=== PATIENT | female | born 1935 | race Two or more races ===

== ENCOUNTER 2022-01-04 21:46 | Inpatient (IN) | payer OTHER ==
[~2022-01-04] VITALS: Ht 172.7 cm; Wt 59.9 kg
[2022-01-04] MEDS ORDERED: ACETAMINOPHEN 650MG SUPP PR STA (23:42)
[2022-01-04] MEDS ORDERED: SODIUM CHLORIDE 0.9% 1,000 ML IV ONE (23:45)
[2022-01-04] MEDS ORDERED: VANCOMYCIN 1G PREMIX 200 ML IV ONE (23:45)
[2022-01-04] MEDS ORDERED: LEVOFLOXACIN 750MG PREMIX 150 ML IV ONE (23:45)
[2022-01-05 01:45] LABS: BASOPHILS % 0.8 % (0.0-2.0); EOSINOPHILS % 0.3 % (0.0-5.0); HEMATOCRIT. 35.7 % (36.0-48.0); HEMOGLOBIN. 11.9 g/dL (12.0-16.0); LYMPHOCYTES % 19.6 % (20.0-50.0); MEAN CORPUSCULAR HEMOGLOBIN 27.2 pg (28.0-32.0); MEAN CORPUSCULAR VOLUME 81.6 fL (81.0-99.0); MEAN PLATELET VOLUME 8.7 fl (7.4-10.4); MONOCYTES % 14.9 % (2.0-8.0); NEUTROPHILS % 64.4 % (40.0-76.0); PLATELET 205 x1000/uL (130-400); RED BLOOD CELL COUNT 4.38 mill/uL (4.2-5.4); RED CELL DISTRIBUTION WIDTH 16.6 % (11.6-14.6)
[2022-01-05 02:31] LABS: CHLORIDE 105 mEq/L (98-107)
[2022-01-05] MEDS ORDERED: VANCOMYCIN 1,000 MG in DEXT 5% WATER 250 ML IV NR (04:00)
[2022-01-05] MEDS ORDERED: LEVOFLOXACIN 750MG PREMIX 150 ML IV NR (04:00)
[2022-01-05 09:37] VITALS: BP 155/91
[2022-01-05] MEDS ORDERED: CLONIDINE 0.1MG TABLET PO PRN (09:45)
[2022-01-05] MEDS ORDERED: DOCUSATE SODIUM 100MG CAPSULE PO PRN (09:45)
[2022-01-05] MEDS ORDERED: ACETAMINOPHEN 325MG TABLET PO PRN ×2 (09:45)
[2022-01-05] MEDS ORDERED: MAGNESIUM/ALUMINUM HYDROXIDE/SIMETHICONE 30ML UDC PO PRN (09:45)
[2022-01-05] MEDS ORDERED: ASPIRIN 325MG EC TABLET PO SCH (09:45)
[2022-01-05] MEDS ORDERED: KETOROLAC 15MG/ML VIAL IV PRN (09:45)
[2022-01-05] MEDS ORDERED: ZOLPIDEM TARTRATE 5MG TABLET PO PRN (09:45)
[2022-01-05] MEDS ORDERED: ONDANSETRON HCL 4MG/2ML INJ IV PRN (09:45)
[2022-01-05] MEDS ORDERED: GUAIFENESIN 200MG/10ML SUGAR FREE UDC PO PRN (09:45)
[2022-01-05] MEDS ORDERED: NITROGLYCERIN 0.4MG TABLET SL SL PRN (09:45)
[2022-01-05] MEDS ORDERED: IPRATROPIUM/ALBUTEROL 0.5-3(2.5)MG/3ML NEB NEB PRN (09:45)
[2022-01-05] MEDS ORDERED: ENOXAPARIN 40MG/0.4ML SYR SUBCUT SCH (10:00)
[2022-01-05] MEDS ORDERED: SODIUM POLYSTYRENE SULFONATE 15 G/60 ML BOT PO NR (10:00)
[2022-01-05] MEDS: AMLODIPINE 10MG TABLET PO SCH (10:45)
[2022-01-05 13:43] LABS: T4 FREE 1.21 ng/dL (0.76-1.46)
[2022-01-05 13:51] LABS: VITAMIN B12 SERUM 550 pg/mL (211-911)
[2022-01-05 16:00] VITALS: BP 136/88
[2022-01-05 18:00] VITALS: BP 133/82
[2022-01-05] MEDS: MEROPENEM 1,000 MG in SODIUM CHLORIDE 0.9% 100 ML IV SCH (18:36)
[2022-01-05 20:00] VITALS: BP 115/76
[2022-01-05] MEDS ORDERED: ENOXAPARIN 40MG/0.4ML SYR SUBCUT NR (20:00)
[2022-01-05] MEDS ORDERED: VANCOMYCIN 750MG PREMIX 150 ML IV SCH (20:00)
[2022-01-05] MEDS: FAMOTIDINE 20MG TABLET PO SCH (21:54)
[2022-01-05] MEDS: ASCORBIC ACID 500 MG TABLET PO SCH (21:54)
[2022-01-05] MEDS: ATORVASTATIN CALCIUM 40MG TABLET PO SCH (21:55)
[2022-01-05 23:35] LABS: CREATINE KINASE 60 IU/L (26-192); CREATINE KINASE MB FRACTION < 1.0 ng/mL (0.5-3.6)
[2022-01-05 23:48] LABS: INR 1.2
[2022-01-06] VITALS: BP 126/82
[2022-01-06] MEDS: MEROPENEM 1,000 MG in SODIUM CHLORIDE 0.9% 100 ML IV SCH ×3 (02:10→18:34)
[2022-01-06 04:00] VITALS: BP 115/75
[2022-01-06 07:04] LABS: HEMATOCRIT. 30.1 % (36.0-48.0); MEAN CORPUSCULAR HEMOGLOBIN 26.9 pg (28.0-32.0); MEAN CORPUSCULAR VOLUME 80.8 fL (81.0-99.0); MEAN PLATELET VOLUME 8.7 fl (7.4-10.4); PLATELET 169 x1000/uL (130-400); RED BLOOD CELL COUNT 3.72 mill/uL (4.2-5.4); RED CELL DISTRIBUTION WIDTH 16.1 % (11.6-14.6)
[2022-01-06 07:36] LABS: CHLORIDE 109 mEq/L (98-107)
[2022-01-06 08:00] VITALS: BP 140/64
[2022-01-06 08:11] LABS: PHOSPHORUS 2.5 mg/dL (2.5-4.9)
[2022-01-06] MEDS ORDERED: VANCOMYCIN 500MG PREMIX 100 ML IV SCH (09:00)
[2022-01-06] MEDS: AMLODIPINE 10MG TABLET PO SCH (09:41)
[2022-01-06] MEDS: ZINC SULFATE 220 MG ( 50 ) CAPSULE PO SCH (09:41)
[2022-01-06] MEDS: ASCORBIC ACID 500 MG TABLET PO SCH ×2 (09:41→21:16)
[2022-01-06] MEDS: FAMOTIDINE 20MG TABLET PO SCH ×2 (09:41→21:16)
[2022-01-06] MEDS: ENOXAPARIN 80MG/0.8ML SYR SUBCUT SCH ×2 (09:42→21:16)
[2022-01-06] MEDS: KCL 20MEQ/100ML PREMIX 100 ML IV SCH ×2 (09:42→12:00)
[2022-01-06] MEDS: ASPIRIN 81MG EC TABLET PO SCH (09:42)
[2022-01-06] MEDS ORDERED: VERAPAMIL HCL 2.5 MG/1 ML 2ML VIAL IV ONE (11:20)
[2022-01-06] MEDS ORDERED: DIPHENHYDRAMINE 50MG/ML VIAL ONE (11:20)
[2022-01-06] MEDS ORDERED: IODIXANOL 320MG/ML 100 ML BOTTLE IV ONE (11:20)
[2022-01-06] MEDS ORDERED: LIDOCAINE HCL 1% 20ML VIAL (Pyxis) INJ ONE (11:20)
[2022-01-06] MEDS ORDERED: HEPARIN 1000 UNITS/ML 10ML ONE (11:39)
[2022-01-06] MEDS ORDERED: FENTANYL CITRATE/PF 50MCG/ML 2ML VIAL ONE (12:21)
[2022-01-06] MEDS ORDERED: MIDAZOLAM HCL 2 MG/2 ML VIAL ONE (12:21)
[2022-01-06] MEDS ORDERED: HYDRALAZINE 20MG/ML VIAL ONE (13:09)
[2022-01-06] MEDS ORDERED: ATROPINE SULFATE 1MG/10ML SYR IV PRN (13:45)
[2022-01-06] MEDS ORDERED: SODIUM CHLORIDE 0.45% 500 ML IV ONE (14:30)
[2022-01-06 16:00] VITALS: BP 140/62
[2022-01-06 18:37] LABS: PLATELET ESTIMATE NORMAL
[2022-01-06] MEDS: VANCOMYCIN 1,000 MG in DEXT 5% WATER 250 ML IV SCH (19:15)
[2022-01-06 20:00] VITALS: BP 143/74
[2022-01-06] MEDS: ATORVASTATIN CALCIUM 40MG TABLET PO SCH (21:16)
[2022-01-06 23:25] LABS: CLARITY URINE CLOUDY (CLEAR); COLOR URINE YELLOW (YELLOW); KETONES URINE TRACE (NEGATIVE); LEUKOCYTE ESTERASE URINE NEGATIVE (NEGATIVE); NITRITE URINE NEGATIVE (NEGATIVE); OCCULT BLOOD URINE NEGATIVE (NEGATIVE); PH URINE 5.5 (4.5-8.0); PROTEIN URINE 1+ (NEGATIVE); SPECIFIC GRAVITY URINE 1.024 (1.005-1.030)
[2022-01-06 23:44] LABS: *AMPHETAMINES SCREEN URINE NEGATIVE (NEGATIVE); *BARBITURATES SCREEN URINE NEGATIVE (NEGATIVE); *BENZODIAZEPINES SCREEN URINE PRESUMTIVE POSITIVE (NEGATIVE); *COCAINE SCREEN URINE NEGATIVE (NEGATIVE); CANNABINOID URINE SCREEN NEGATIVE (NEGATIVE); METHADONE URINE SCREEN NEGATIVE (NEGATIVE); OPIATES URINE SCREEN NEGATIVE (NEGATIVE); PHENCYCLIDINE URINE SCREEN NEGATIVE (NEGATIVE)
[2022-01-07] VITALS (8 sets, daily range): BP systolic 116–148; BP diastolic 51–77
[2022-01-07] MEDS: MEROPENEM 1,000 MG in SODIUM CHLORIDE 0.9% 100 ML IV SCH ×3 (01:36→17:09)
[2022-01-07 07:13] LABS: EOSINOPHILS % 3.2 % (0.0-5.0); HEMATOCRIT. 31.4 % (36.0-48.0); HEMOGLOBIN. 10.4 g/dL (12.0-16.0); LYMPHOCYTES % 20.4 % (20.0-50.0); MEAN CORPUSCULAR HEMOGLOBIN 26.9 pg (28.0-32.0); MEAN CORPUSCULAR VOLUME 81.1 fL (81.0-99.0); MEAN PLATELET VOLUME 9.2 fl (7.4-10.4); MONOCYTES % 14.4 % (2.0-8.0); PLATELET 182 x1000/uL (130-400); RED BLOOD CELL COUNT 3.87 mill/uL (4.2-5.4)
[2022-01-07 08:01] LABS: CHLORIDE 108 mEq/L (98-107)
[2022-01-07] MEDS: ENOXAPARIN 80MG/0.8ML SYR SUBCUT SCH ×2 (09:31→21:59)
[2022-01-07] MEDS: ASCORBIC ACID 500 MG TABLET PO SCH ×2 (09:31→21:59)
[2022-01-07] MEDS: ZINC SULFATE 220 MG ( 50 ) CAPSULE PO SCH (09:32)
[2022-01-07] MEDS: AMLODIPINE 10MG TABLET PO SCH (09:32)
[2022-01-07] MEDS: FAMOTIDINE 20MG TABLET PO SCH ×2 (09:32→21:59)
[2022-01-07] MEDS: ASPIRIN 81MG EC TABLET PO SCH (09:33)
[2022-01-07] MEDS ORDERED: LOSARTAN POTASSIUM 25 MG TABLET PO SCH (10:45)
[2022-01-07] MEDS ORDERED: FUROSEMIDE 20MG TABLET PO SCH (10:45)
[2022-01-07] MEDS: CARVEDILOL 6.25 MG TABLET PO SCH ×2 (12:09→22:00)
[2022-01-07] MEDS: VANCOMYCIN 1,000 MG in DEXT 5% WATER 250 ML IV SCH (17:09)
[2022-01-07] MEDS ORDERED: POTASSIUM CHLORIDE 20MEQ TABLET SR PO NR (19:15)
[2022-01-07] MEDS: ATORVASTATIN CALCIUM 40MG TABLET PO SCH (21:59)
== END 2022-01-07 23:07 | DRG 871 ==
LOC: ER 21:46 → 3WST 01-05 05:38 → ENRESERV 01-05 06:40
PROVIDERS: ADMIT Internal Medicine; ATTEND Internal Medicine
PROC: 4A023N7 Measurement of Cardiac Sampling and Pressure, Left Heart, Percutaneous Approach (ICD-10-PCS; principal; 2022-01-06)
PROC: B2111ZZ Fluoroscopy of Multiple Coronary Arteries using Low Osmolar Contrast (ICD-10-PCS; 2022-01-06)
PROC: B41F1ZZ Fluoroscopy of Right Lower Extremity Arteries using Low Osmolar Contrast (ICD-10-PCS; 2022-01-06)
PROC: 0HBKXZZ Excision of Right Lower Leg Skin, External Approach (ICD-10-PCS; 2022-01-07)
DX: A41.9 Sepsis, unspecified organism (principal); E43 Unspecified severe protein-calorie malnutrition; L89.513 Pressure ulcer of right ankle, stage 3; G92.8 Other toxic encephalopathy; I21.A1 Myocardial infarction type 2; I50.21 Acute systolic (congestive) heart failure; E87.1 Hypo-osmolality and hyponatremia; I42.8 Other cardiomyopathies; D63.8 Anemia in other chronic diseases classified elsewhere; E78.00 Pure hypercholesterolemia, unspecified; E87.5 Hyperkalemia; J45.909 Unspecified asthma, uncomplicated; Z20.822 Contact with and (suspected) exposure to COVID-19; I11.0 Hypertensive heart disease with heart failure; L89.626 Pressure-induced deep tissue damage of left heel; I25.10 Atherosclerotic heart disease of native coronary artery without angina pectoris; F03.90 Unspecified dementia, unspecified severity, without behavioral disturbance, psychotic disturbance, mood disturbance, and anxiety; Z68.20 Body mass index [BMI] 20.0-20.9, adult; Z86.718 Personal history of other venous thrombosis and embolism; Z88.8 Allergy status to other drugs, medicaments and biological substances; Z88.0 Allergy status to penicillin
CPT/HCPCS: 36415; 71045; 80048; 80053; 80061; 80305; 81003; 82040; 82550; 82553; 82607; 82746; 82962; 83036; 83540; 83550; 83605; 83735; 83880; 84100; 84134; 84439; 84443; 84484; 85025; 87426; 93005; 93306; 93458; 93970; 99291; C1760; C1769; C1887; C1893; J0360; J1200; J1644; J1650; J1956; J2185; J2250; J3010; J3370; J3480; J3490; J7030; J7050; J7060; Q9967; A4315

== ENCOUNTER 2022-02-19 16:25 | Inpatient (IN) | payer OTHER ==
[~2022-02-19] VITALS: Ht 167.6 cm; Wt 53.1 kg
[2022-02-19] MEDS ORDERED: MIDAZOLAM 100MG/100ML PMX 100 ML IV STA (16:55)
[2022-02-19] MEDS ORDERED: SODIUM CHLORIDE 0.9% 1000ML BAG (SEPSIS BOLUS) IV ONE (17:00)
[2022-02-19] MEDS ORDERED: VANCOMYCIN 1G PREMIX 200 ML IV SCH (17:30)
[2022-02-19] MEDS ORDERED: LEVOFLOXACIN 750MG PREMIX 150 ML IV ONE (17:30)
[2022-02-19] MEDS ORDERED: LORAZEPAM 2MG/ML CPJ IV ONE (17:30)
[2022-02-19] MEDS ORDERED: LORAZEPAM 2MG/ML CPJ IV NR (17:45)
[2022-02-19] MEDS ORDERED: MIDAZOLAM HCL 100 MG in SODIUM CHLORIDE 0.9% 100 ML IV PRN (17:45)
[2022-02-19 17:57] LABS: HEMATOCRIT. 25.8 % (36.0-48.0); HEMOGLOBIN. 8.4 g/dL (12.0-16.0); MEAN CORPUSCULAR HEMOGLOBIN 25.7 pg (28.0-32.0); MEAN CORPUSCULAR VOLUME 79.3 fL (81.0-99.0); PLATELET 247 x1000/uL (130-400); RED BLOOD CELL COUNT 3.26 mill/uL (4.2-5.4); RED CELL DISTRIBUTION WIDTH 17.9 % (11.6-14.6)
[2022-02-19 18:05] LABS: CHLORIDE 127 mEq/L (98-107)
[2022-02-19 18:08] LABS: INR 1.4; PARTIAL THROMBOPLASTIN TIME 24.3 sec (23.4-31.0); PROTHROMBIN TIME 14.4 sec (9.6-11.0)
[2022-02-19] MEDS ORDERED: PHENYLEPHRINE 50 MG in DEXT 5% WATER 245 ML IV STA (18:37)
[2022-02-19 18:58] LABS: BG BASE EXCESS -3.5 mmol/L (-2.0-2.0); BG CARBOXYHEMOGLOBIN 0.3 % (0.5-1.5); BG DEOXYHEMOGLOBIN 1.2 % (0.0-5.0); BG FRACTION INSPIRED OXYGEN 100; BG HCO3 ACT 20.4 mmol/L (22.0-26.0); BG METHEMOGLOBIN 0.1 % (0.0-1.5); BG OXYGEN SATURATION 98.8 % (92.0-98.5); BG OXYHEMOGLOBIN 98.4 % (94.0-97.0); BG PCO2 32.7 mmHg (35.0-45.0); BG PH 7.414 (7.350-7.450); BG PO2 519.6 mmHg (75.0-100.0); BG SAMPLE SITE LEFT BRACHIAL; BG TOTAL HEMOGLOBIN 9.5 g/dL (12.0-18.0); BG TOTAL RESPIRATORY RATE 12 b/min; BG VENT MODE VENT - AC
[2022-02-19] MEDS ORDERED: KCL 10MEQ/50ML PREMIX 50 ML IV ONE (19:00)
[2022-02-19 19:09] LABS: CLARITY URINE CLOUDY (CLEAR); COLOR URINE YELLOW (YELLOW); KETONES URINE TRACE (NEGATIVE); LEUKOCYTE ESTERASE URINE TRACE (NEGATIVE); NITRITE URINE NEGATIVE (NEGATIVE); OCCULT BLOOD URINE NEGATIVE (NEGATIVE); PROTEIN URINE 2+ (NEGATIVE); SPECIFIC GRAVITY URINE 1.016 (1.005-1.030)
[2022-02-19] MEDS ORDERED: PHENYLEPHRINE 50 MG in DEXT 5% WATER 245 ML IV PRN (19:15)
[2022-02-19 19:38] LABS: PLATELET ESTIMATE NORMAL
[2022-02-19] MEDS ORDERED: ASPIRIN 300MG SUPP PR ONE (19:45)
[2022-02-19] MEDS ORDERED: NOREPINEPHRINE 8MG/250ML PMX 250 ML IV ONE (21:30)
[2022-02-19] MEDS ORDERED: NOREPINEPHRINE 8 MG in DEXTROSE 5% WATER 250 ML IV PRN (22:00)
[2022-02-20] VITALS (58 sets, daily range): BP systolic 95–161; BP diastolic 42–97
[2022-02-20] MEDS ORDERED: LEVOFLOXACIN 500MG PREMIX 100 ML IV SCH (09:30)
[2022-02-20] MEDS ORDERED: PANTOPRAZOLE 40MG DR TABLET PO SCH (09:30)
[2022-02-20] MEDS ORDERED: ONDANSETRON HCL 4MG/2ML INJ IV PRN (09:30)
[2022-02-20] MEDS ORDERED: LEVETIRACETAM 500 MG in SODIUM CHLORIDE 0.9% 100 ML IV SCH (09:30)
[2022-02-20] MEDS ORDERED: ACETAMINOPHEN 325MG TABLET PO PRN (09:30)
[2022-02-20] MEDS ORDERED: NOREPINEPHRINE 8 MG in DEXT 5% WATER 242 ML IV PRN (10:00)
[2022-02-20] MEDS ORDERED: ENOXAPARIN 40MG/0.4ML SYR SUBCUT SCH (10:00)
[2022-02-20] MEDS ORDERED: MIDAZOLAM HCL 100 MG in SODIUM CHLORIDE 0.9% 80 ML IV PRN (10:00)
[2022-02-20] MEDS: PANTOPRAZOLE SODIUM 40 MG/VIAL IV SCH (10:46)
[2022-02-20] MEDS: DEXTROSE 5% WATER 1,000 ML IV SCH ×2 (10:47→22:55)
[2022-02-20] MEDS: LEVETIRACETAM 500MG in SODIUM CHLORIDE 0.9% 100ML IV SCH ×2 (10:48→20:11)
[2022-02-20] MEDS: DEXAMETHASONE 4MG/ML 1ML VIAL IV SCH (12:45)
[2022-02-20] MEDS: MIDODRINE HCL 5MG TABLET PO SCH ×2 (12:46→17:22)
[2022-02-20] MEDS: PHENYLEPHRINE 50 MG in DEXT 5% WATER 245 ML IV PRN ×2 (12:46→20:52)
[2022-02-20 13:46] LABS: BASOPHILS % 0.2 % (0.0-2.0); EOSINOPHILS % 0.4 % (0.0-5.0); HEMATOCRIT. 23.7 % (36.0-48.0); HEMOGLOBIN. 7.6 g/dL (12.0-16.0); LYMPHOCYTES % 7.4 % (20.0-50.0); MEAN CORPUSCULAR HEMOGLOBIN 25.6 pg (28.0-32.0); MEAN PLATELET VOLUME 8.8 fl (7.4-10.4); MONOCYTES % 2.9 % (2.0-8.0); NEUTROPHILS % 89.1 % (40.0-76.0); PLATELET 206 x1000/uL (130-400); RED BLOOD CELL COUNT 2.98 mill/uL (4.2-5.4); RED CELL DISTRIBUTION WIDTH 17.9 % (11.6-14.6)
[2022-02-20 13:48] LABS: MEAN CORPUSCULAR VOLUME 79.6 fL (81.0-99.0)
[2022-02-20 14:23] LABS: PHOSPHORUS 2.4 mg/dL (2.5-4.9)
[2022-02-20 14:44] LABS: BG BASE EXCESS -5.9 mmol/L (-2.0-2.0); BG CARBOXYHEMOGLOBIN 0.7 % (0.5-1.5); BG DEOXYHEMOGLOBIN 1.1 % (0.0-5.0); BG FRACTION INSPIRED OXYGEN 70; BG HCO3 ACT 16.2 mmol/L (22.0-26.0); BG METHEMOGLOBIN 0.3 % (0.0-1.5); BG OXYGEN SATURATION 98.9 % (92.0-98.5); BG OXYHEMOGLOBIN 97.9 % (94.0-97.0); BG PCO2 21.2 mmHg (35.0-45.0); BG PH 7.502 (7.350-7.450); BG PO2 216.3 mmHg (75.0-100.0); BG SAMPLE SITE RIGHT BRACHIAL; BG TOTAL HEMOGLOBIN 7.8 g/dL (12.0-18.0); BG VENT MODE VENT - AC
[2022-02-20 14:49] LABS: FOLIC ACID (FOLATE) SERUM 3.6 ng/mL (>5.38)
[2022-02-20] MEDS ORDERED: VANCOMYCIN 750MG PREMIX 150 ML IV SCH (15:00)
[2022-02-20] MEDS ORDERED: POTASSIUM CHLORIDE INJ 40 MEQ in DEXT 5% WATER 250 ML IV ONE (15:15)
[2022-02-20] MEDS: KCL 20MEQ/100ML X 2 FOR TOTAL KCL 40MEQ/200ML IV SCH ×2 (15:59→17:22)
[2022-02-20] MEDS: LEVOFLOXACIN 250MG PREMIX 50 ML IV SCH (17:22)
[2022-02-20] MEDS ORDERED: POTASSIUM PHOS,M-BASIC-D-BASIC 10 MMOL in DEXT 5% WATER 246.6667 ML IV NR (20:00)
[2022-02-20] MEDS ORDERED: PNEUMOCOCCAL 23-VAL P-SAC VAC 0.5 ML IM ONE (22:30)
[2022-02-20] MEDS: ENOXAPARIN 60MG/0.6ML SYR SUBCUT SCH (22:40)
[2022-02-21] VITALS (97 sets, daily range): BP systolic 92–155; BP diastolic 50–88
[2022-02-21 05:03] LABS: HEMATOCRIT. 25.2 % (36.0-48.0); HEMOGLOBIN. 8.1 g/dL (12.0-16.0); MEAN CORPUSCULAR HEMOGLOBIN 25.7 pg (28.0-32.0); MEAN CORPUSCULAR VOLUME 80.5 fL (81.0-99.0); MEAN PLATELET VOLUME 8.9 fl (7.4-10.4); PLATELET 185 x1000/uL (130-400); RED BLOOD CELL COUNT 3.13 mill/uL (4.2-5.4); RED CELL DISTRIBUTION WIDTH 18.8 % (11.6-14.6)
[2022-02-21] MEDS: MIDODRINE HCL 5MG TABLET PO SCH ×3 (08:09→16:44)
[2022-02-21] MEDS: PANTOPRAZOLE SODIUM 40 MG/VIAL IV SCH (08:09)
[2022-02-21] MEDS: DEXAMETHASONE 4MG/ML 1ML VIAL IV SCH (08:10)
[2022-02-21] MEDS: PHENYLEPHRINE 50 MG in DEXT 5% WATER 245 ML IV PRN (08:10)
[2022-02-21] MEDS: LEVETIRACETAM 500MG in SODIUM CHLORIDE 0.9% 100ML IV SCH (08:11)
[2022-02-21] MEDS ORDERED: ENOXAPARIN 30MG/0.3ML SYR SUBCUT SCH (09:00)
[2022-02-21 09:09] LABS: PLATELET ESTIMATE NORMAL
[2022-02-21 10:38] LABS: BG BASE EXCESS -5.7 mmol/L (-2.0-2.0); BG CARBOXYHEMOGLOBIN 0.6 % (0.5-1.5); BG DEOXYHEMOGLOBIN 1.2 % (0.0-5.0); BG FRACTION INSPIRED OXYGEN 50; BG HCO3 ACT 16.6 mmol/L (22.0-26.0); BG METHEMOGLOBIN 0.3 % (0.0-1.5); BG OXYGEN SATURATION 98.8 % (92.0-98.5); BG OXYHEMOGLOBIN 97.9 % (94.0-97.0); BG PCO2 21.7 mmHg (35.0-45.0); BG PH 7.501 (7.350-7.450); BG PO2 200.7 mmHg (75.0-100.0); BG SAMPLE SITE RIGHT BRACHIAL; BG TOTAL HEMOGLOBIN 7.3 g/dL (12.0-18.0); BG TOTAL RESPIRATORY RATE 24 b/min; BG VENT MODE VENT - AC
[2022-02-21] MEDS: DEXTROSE 5% WATER 1,000 ML IV SCH (12:32)
[2022-02-21 12:35] LABS: PHOSPHORUS 2.9 mg/dL (2.5-4.9)
[2022-02-21] MEDS ORDERED: VANCOMYCIN 500MG PREMIX 100 ML IV NR (13:00)
[2022-02-21] MEDS: DEXT 5%/0.45% NACL 1000ML 1,000 ML IV SCH (15:43)
[2022-02-21 16:27] LABS: BG BASE EXCESS -7.1 mmol/L (-2.0-2.0); BG CARBOXYHEMOGLOBIN 0.4 % (0.5-1.5); BG DEOXYHEMOGLOBIN 1.8 % (0.0-5.0); BG FRACTION INSPIRED OXYGEN 30; BG HCO3 ACT 15.3 mmol/L (22.0-26.0); BG METHEMOGLOBIN 0.1 % (0.0-1.5); BG OXYGEN SATURATION 98.2 % (92.0-98.5); BG OXYHEMOGLOBIN 97.7 % (94.0-97.0); BG PCO2 21.2 mmHg (35.0-45.0); BG PH 7.477 (7.350-7.450); BG SAMPLE SITE RIGHT BRACHIAL; BG TOTAL HEMOGLOBIN 7.9 g/dL (12.0-18.0); BG TOTAL RESPIRATORY RATE 20 b/min; BG VENT MODE VENT - SIMV
[2022-02-21] MEDS: LEVOFLOXACIN 250MG PREMIX 50 ML IV SCH (16:44)
[2022-02-21] MEDS: ENOXAPARIN 60MG/0.6ML SYR SUBCUT SCH (20:20)
[2022-02-21] MEDS: LEVETIRACETAM 500MG PREMIX 100 ML IV SCH (20:20)
[2022-02-22] VITALS (53 sets, daily range): BP systolic 92–166; BP diastolic 53–123
[2022-02-22 05:04] LABS: MEAN CORPUSCULAR HEMOGLOBIN 25.6 pg (28.0-32.0); MEAN CORPUSCULAR VOLUME 77.6 fL (81.0-99.0); MEAN PLATELET VOLUME 9.1 fl (7.4-10.4); PLATELET 142 x1000/uL (130-400); RED BLOOD CELL COUNT 2.67 mill/uL (4.2-5.4); RED CELL DISTRIBUTION WIDTH 18.5 % (11.6-14.6)
[2022-02-22 05:56] LABS: HEMATOCRIT. 20.7 % (36.0-48.0); HEMOGLOBIN. 6.8 g/dL (12.0-16.0)
[2022-02-22] MEDS ORDERED: SODIUM POLYSTYRENE SULFONATE 15 G/60 ML BOT PO SCH (07:15)
[2022-02-22] MEDS: CITRIC ACID/SODIUM CITRATE SOLN 30ML UDC PO SCH ×3 (09:32→18:32)
[2022-02-22] MEDS: MIDODRINE HCL 5MG TABLET PO SCH ×2 (09:34→14:28)
[2022-02-22] MEDS: DEXAMETHASONE 4MG/ML 1ML VIAL IV SCH (09:35)
[2022-02-22] MEDS: LEVETIRACETAM 500MG PREMIX 100 ML IV SCH (09:36)
[2022-02-22] MEDS: PANTOPRAZOLE SODIUM 40 MG/VIAL IV SCH ×2 (09:36→22:53)
[2022-02-22] MEDS: DEXT 5%/0.45% NACL 1000ML 1,000 ML IV SCH (09:37)
[2022-02-22 11:10] LABS: BG BASE EXCESS -6.3 mmol/L (-2.0-2.0); BG CARBOXYHEMOGLOBIN 1.3 % (0.5-1.5); BG DEOXYHEMOGLOBIN 1.2 % (0.0-5.0); BG FRACTION INSPIRED OXYGEN 30; BG METHEMOGLOBIN 0.1 % (0.0-1.5); BG OXYGEN SATURATION 98.8 % (92.0-98.5); BG OXYHEMOGLOBIN 97.4 % (94.0-97.0); BG PCO2 24.8 mmHg (35.0-45.0); BG PH 7.454 (7.350-7.450); BG PO2 147.4 mmHg (75.0-100.0); BG SAMPLE SITE RIGHT BRACHIAL; BG TOTAL HEMOGLOBIN 6.4 g/dL (12.0-18.0); BG VENT MODE VENT - SIMV
[2022-02-22 11:24] LABS: PLATELET ESTIMATE NORMAL
[2022-02-22] MEDS: LORAZEPAM 2MG/ML CPJ IV PRN ×2 (12:10→22:53)
[2022-02-22] MEDS: FOLIC ACID 1MG TABLET PO SCH (14:28)
[2022-02-22 15:22] LABS: HEMATOCRIT. 21.9 % (36.0-48.0); MEAN CORPUSCULAR HEMOGLOBIN 26.2 pg (28.0-32.0); MEAN CORPUSCULAR VOLUME 84.3 fL (81.0-99.0); MEAN PLATELET VOLUME 9.8 fl (7.4-10.4); PLATELET 138 x1000/uL (130-400); RED CELL DISTRIBUTION WIDTH 19.2 % (11.6-14.6)
[2022-02-22 15:50] LABS: HEMOGLOBIN. 6.8 g/dL (12.0-16.0)
[2022-02-22 17:18] LABS: PLATELET ESTIMATE NORMAL
[2022-02-22] MEDS: FERROUS SULFATE 300MG/5ML UDC NG SCH (18:32)
[2022-02-22] MEDS: LEVOFLOXACIN 250MG PREMIX 50 ML IV SCH (18:33)
[2022-02-22 19:14] LABS: HEMOGLOBIN 6.7 g/dL (12.0-16.0)
[2022-02-22 19:15] LABS: HEMATOCRIT 20.3 % (36.0-48.0)
[2022-02-22] MEDS: LEVETIRACETAM 750 MG in SODIUM CHLORIDE 0.9% 100 ML IV SCH (21:18)
[2022-02-23] VITALS (47 sets, daily range): BP systolic 88–134; BP diastolic 43–65
[2022-02-23 05:49] LABS: MEAN CORPUSCULAR HEMOGLOBIN 25.8 pg (28.0-32.0); MEAN CORPUSCULAR VOLUME 76.3 fL (81.0-99.0); MEAN PLATELET VOLUME 9.4 fl (7.4-10.4); PLATELET 116 x1000/uL (130-400); RED BLOOD CELL COUNT 2.21 mill/uL (4.2-5.4); RED CELL DISTRIBUTION WIDTH 18.3 % (11.6-14.6)
[2022-02-23] MEDS: FERROUS SULFATE 300MG/5ML UDC NG SCH ×3 (06:14→19:05)
[2022-02-23] MEDS: DEXT 5%/0.45% NACL 1000ML 1,000 ML IV SCH (06:15)
[2022-02-23 07:38] LABS: HEMATOCRIT. 16.9 % (36.0-48.0); HEMOGLOBIN. 5.7 g/dL (12.0-16.0)
[2022-02-23 08:16] LABS: BG BASE EXCESS -5.8 mmol/L (-2.0-2.0); BG CARBOXYHEMOGLOBIN 0.1 % (0.5-1.5); BG HCO3 ACT 16.9 mmol/L (22.0-26.0); BG METHEMOGLOBIN 0.5 % (0.0-1.5); BG OXYHEMOGLOBIN 97.4 % (94.0-97.0); BG PCO2 22.2 mmHg (35.0-45.0); BG PH 7.499 (7.350-7.450); BG PO2 141.4 mmHg (75.0-100.0); BG SAMPLE SITE RIGHT RADIAL; BG TOTAL HEMOGLOBIN 5.7 g/dL (12.0-18.0); BG VENT MODE VENT - SIMV
[2022-02-23] MEDS ORDERED: DEXAMETHASONE 10 MG/ML VIAL IV SCH (09:00)
[2022-02-23] MEDS: CITRIC ACID/SODIUM CITRATE SOLN 30ML UDC PO SCH ×3 (10:03→19:05)
[2022-02-23] MEDS: PANTOPRAZOLE SODIUM 40 MG/VIAL IV SCH ×2 (10:03→21:35)
[2022-02-23] MEDS: FOLIC ACID 1MG TABLET PO SCH (10:03)
[2022-02-23] MEDS: LEVETIRACETAM 750 MG in SODIUM CHLORIDE 0.9% 100 ML IV SCH ×2 (10:04→21:35)
[2022-02-23 15:29] LABS: NUCLEATED RED BLOOD CELLS 2 /100 WBC; PLATELET ESTIMATE DECREASED
[2022-02-23] MEDS: LEVOFLOXACIN 250MG PREMIX 50 ML IV SCH (19:05)
[2022-02-24] VITALS (42 sets, daily range): BP systolic 91–118; BP diastolic 44–58
[2022-02-24] MEDS: DEXT 5%/0.45% NACL 1000ML 1,000 ML IV SCH ×2 (02:41→22:37)
[2022-02-24 05:44] LABS: MEAN CORPUSCULAR HEMOGLOBIN 25.3 pg (28.0-32.0); MEAN PLATELET VOLUME 9.2 fl (7.4-10.4); PLATELET 102 x1000/uL (130-400); RED BLOOD CELL COUNT 2.14 mill/uL (4.2-5.4); RED CELL DISTRIBUTION WIDTH 18.4 % (11.6-14.6)
[2022-02-24 06:17] LABS: HEMATOCRIT. 16.3 % (36.0-48.0); HEMOGLOBIN. 5.4 g/dL (12.0-16.0)
[2022-02-24] MEDS ORDERED: KCL 20MEQ/100ML PREMIX 100 ML IV NR (07:30)
[2022-02-24] MEDS: CITRIC ACID/SODIUM CITRATE SOLN 30ML UDC PO SCH ×3 (08:14→17:00)
[2022-02-24] MEDS: FERROUS SULFATE 300MG/5ML UDC NG SCH ×3 (08:14→17:00)
[2022-02-24] MEDS: FOLIC ACID 1MG TABLET PO SCH (08:15)
[2022-02-24] MEDS: DEXAMETHASONE 4MG/ML 1ML VIAL IV SCH (08:15)
[2022-02-24] MEDS: LEVETIRACETAM 750 MG in SODIUM CHLORIDE 0.9% 100 ML IV SCH ×2 (08:15→21:44)
[2022-02-24] MEDS ORDERED: POTASSIUM CHLORIDE INJ 40 MEQ in DEXT 5% WATER 250 ML IV NR (10:00)
[2022-02-24] MEDS: PANTOPRAZOLE SODIUM 40 MG/VIAL IV SCH ×2 (10:00→22:37)
[2022-02-24 12:45] LABS: PLATELET ESTIMATE SLIGHTLY DECREASED
[2022-02-24 15:10] LABS: PHOSPHORUS 3.8 mg/dL (2.5-4.9)
[2022-02-24] MEDS ORDERED: MAGNESIUM 2 G PREMIX 50 ML IV NR (18:00)
[2022-02-24] MEDS ORDERED: POTASSIUM CHLORIDE 20MEQ/PACKET NG NR (18:00)
[2022-02-25] VITALS (44 sets, daily range): BP systolic 94–126; BP diastolic 45–63
[2022-02-25 05:45] LABS: BASOPHILS % 0.1 % (0.0-2.0); LYMPHOCYTES % 7.9 % (20.0-50.0); MEAN CORPUSCULAR HEMOGLOBIN 27.5 pg (28.0-32.0); MEAN CORPUSCULAR VOLUME 80.1 fL (81.0-99.0); MEAN PLATELET VOLUME 9.5 fl (7.4-10.4); MONOCYTES % 6.1 % (2.0-8.0); NEUTROPHILS % 85.9 % (40.0-76.0); PLATELET 71 x1000/uL (130-400); RED CELL DISTRIBUTION WIDTH 19.9 % (11.6-14.6)
[2022-02-25 06:11] LABS: HEMOGLOBIN. 6.9 g/dL (12.0-16.0)
[2022-02-25] MEDS: FERROUS SULFATE 300MG/5ML UDC NG SCH ×3 (07:35→17:00)
[2022-02-25] MEDS: PANTOPRAZOLE SODIUM 40 MG/VIAL IV SCH ×2 (09:47→21:50)
[2022-02-25] MEDS: FUROSEMIDE 40MG/4ML VIAL IVP SCH (09:48)
[2022-02-25] MEDS: CITRIC ACID/SODIUM CITRATE SOLN 30ML UDC PO SCH ×3 (09:48→17:00)
[2022-02-25] MEDS: POTASSIUM CHLORIDE 20MEQ/PACKET PO SCH ×2 (09:49→17:00)
[2022-02-25] MEDS: FOLIC ACID 1MG TABLET PO SCH (09:49)
[2022-02-25] MEDS: LEVETIRACETAM 750 MG in SODIUM CHLORIDE 0.9% 100 ML IV SCH ×2 (09:49→21:48)
[2022-02-25] MEDS: DEXAMETHASONE 4MG/ML 1ML VIAL IV SCH (09:50)
[2022-02-25] MEDS ORDERED: LEVOFLOXACIN 250MG PREMIX 50 ML IV SCH (11:00)
[2022-02-25] MEDS: ATORVASTATIN CALCIUM 40MG TABLET NG SCH (21:48)
[2022-02-26] VITALS (41 sets, daily range): BP systolic 99–130; BP diastolic 43–84
[2022-02-26 05:36] LABS: BASOPHILS % 0.1 % (0.0-2.0); EOSINOPHILS % 0.2 % (0.0-5.0); HEMOGLOBIN. 8.9 g/dL (12.0-16.0); LYMPHOCYTES % 8.2 % (20.0-50.0); MEAN CORPUSCULAR HEMOGLOBIN 28.6 pg (28.0-32.0); MEAN CORPUSCULAR VOLUME 83.5 fL (81.0-99.0); MEAN PLATELET VOLUME 9.3 fl (7.4-10.4); MONOCYTES % 5.9 % (2.0-8.0); NEUTROPHILS % 85.6 % (40.0-76.0); PLATELET 60 x1000/uL (130-400); RED BLOOD CELL COUNT 3.11 mill/uL (4.2-5.4); RED CELL DISTRIBUTION WIDTH 20.4 % (11.6-14.6)
[2022-02-26] MEDS: FERROUS SULFATE 300MG/5ML UDC NG SCH ×3 (06:02→16:23)
[2022-02-26 06:14] LABS: PHOSPHORUS 2.8 mg/dL (2.5-4.9)
[2022-02-26] MEDS ORDERED: POTASSIUM CHLORIDE 20MEQ/PACKET PO ONE (07:45)
[2022-02-26] MEDS: CITRIC ACID/SODIUM CITRATE SOLN 30ML UDC PO SCH ×3 (09:27→16:23)
[2022-02-26] MEDS: FUROSEMIDE 40MG/4ML VIAL IVP SCH (09:27)
[2022-02-26] MEDS: FOLIC ACID 1MG TABLET PO SCH (09:27)
[2022-02-26] MEDS: DEXAMETHASONE 4MG/ML 1ML VIAL IV SCH (09:28)
[2022-02-26] MEDS: POTASSIUM CHLORIDE 20MEQ/PACKET PO SCH ×2 (09:28→16:23)
[2022-02-26] MEDS: LEVETIRACETAM 750 MG in SODIUM CHLORIDE 0.9% 100 ML IV SCH (09:28)
[2022-02-26 10:10] LABS: BG BASE EXCESS -3.9 mmol/L (-2.0-2.0); BG CARBOXYHEMOGLOBIN 0.3 % (0.5-1.5); BG DEOXYHEMOGLOBIN 2.2 % (0.0-5.0); BG FRACTION INSPIRED OXYGEN 30; BG METHEMOGLOBIN 1.1 % (0.0-1.5); BG OXYGEN SATURATION 97.8 % (92.0-98.5); BG OXYHEMOGLOBIN 96.4 % (94.0-97.0); BG PCO2 27.2 mmHg (35.0-45.0); BG PH 7.461 (7.350-7.450); BG PO2 139.6 mmHg (75.0-100.0); BG SAMPLE SITE RIGHT RADIAL; BG TOTAL HEMOGLOBIN 9.5 g/dL (12.0-18.0); BG VENT MODE VENT - SIMV
[2022-02-26 14:16] LABS: BG BASE EXCESS -1.6 mmol/L (-2.0-2.0); BG CARBOXYHEMOGLOBIN 0.1 % (0.5-1.5); BG FRACTION INSPIRED OXYGEN 30; BG HCO3 ACT 22.1 mmol/L (22.0-26.0); BG METHEMOGLOBIN 0.2 % (0.0-1.5); BG OXYHEMOGLOBIN 97.7 % (94.0-97.0); BG PCO2 33.5 mmHg (35.0-45.0); BG PH 7.438 (7.350-7.450); BG PO2 145.2 mmHg (75.0-100.0); BG SAMPLE SITE RIGHT BRACHIAL; BG TOTAL HEMOGLOBIN 8.9 g/dL (12.0-18.0); BG VENT MODE VENT - CPAP
[2022-02-26 17:15] LABS: D-DIMER 7.89 mg/L FEU (<0.50); INR 1.1; PARTIAL THROMBOPLASTIN TIME 29.8 sec (23.4-31.0); PROTHROMBIN TIME 11.9 sec (9.6-11.0)
[2022-02-26] MEDS: ATORVASTATIN CALCIUM 40MG TABLET NG SCH (20:12)
[2022-02-26] MEDS ORDERED: FAMOTIDINE 20MG/2ML VIAL IV SCH (21:00)
[2022-02-26] MEDS ORDERED: PANTOPRAZOLE SODIUM 40 MG/VIAL IV SCH (21:00)
== END 2022-02-26 21:45 | disposition short-term general hospital (02) | DRG 870 ==
LOC: ER 16:39 → EDBEDREQ 18:42 → MICUSO 23:16 → MICUNO 02-20 09:56 → MICUSO 02-22 05:54 → MICUNO 02-22 20:32 → 7EST 02-24 19:50 → MICUNO 02-24 21:07
PROVIDERS: ADMIT Internal Medicine; ATTEND Internal Medicine
PROC: 5A1955Z Respiratory Ventilation, Greater than 96 Consecutive Hours (ICD-10-PCS; principal; 2022-02-19)
PROC: 0BH17EZ Insertion of Endotracheal Airway into Trachea, Via Natural or Artificial Opening (ICD-10-PCS; 2022-02-19)
PROC: 06HY33Z Insertion of Infusion Device into Lower Vein, Percutaneous Approach (ICD-10-PCS; 2022-02-19)
PROC: 5A12012 Performance of Cardiac Output, Single, Manual (ICD-10-PCS; 2022-02-21)
PROC: 02HV33Z Insertion of Infusion Device into Superior Vena Cava, Percutaneous Approach (ICD-10-PCS; 2022-02-24)
PROC: B548ZZA Ultrasonography of Superior Vena Cava, Guidance (ICD-10-PCS; 2022-02-24)
DX: A41.89 Other specified sepsis (principal); L89.624 Pressure ulcer of left heel, stage 4; E43 Unspecified severe protein-calorie malnutrition; L89.214 Pressure ulcer of right hip, stage 4; L89.154 Pressure ulcer of sacral region, stage 4; R65.21 Severe sepsis with septic shock; U07.1 COVID-19; G93.41 Metabolic encephalopathy; J96.01 Acute respiratory failure with hypoxia; I21.4 Non-ST elevation (NSTEMI) myocardial infarction; N17.0 Acute kidney failure with tubular necrosis; I46.9 Cardiac arrest, cause unspecified; I63.9 Cerebral infarction, unspecified; E87.0 Hyperosmolality and hypernatremia; I42.8 Other cardiomyopathies; I50.22 Chronic systolic (congestive) heart failure; E87.20 Acidosis, unspecified; E87.1 Hypo-osmolality and hyponatremia; K92.2 Gastrointestinal hemorrhage, unspecified; D50.9 Iron deficiency anemia, unspecified; E78.00 Pure hypercholesterolemia, unspecified; E78.5 Hyperlipidemia, unspecified; E83.52 Hypercalcemia; E87.6 Hypokalemia; F03.90 Unspecified dementia, unspecified severity, without behavioral disturbance, psychotic disturbance, mood disturbance, and anxiety; I11.0 Hypertensive heart disease with heart failure; I49.3 Ventricular premature depolarization; R74.01 Elevation of levels of liver transaminase levels; J44.9 Chronic obstructive pulmonary disease, unspecified; G40.909 Epilepsy, unspecified, not intractable, without status epilepticus; D69.6 Thrombocytopenia, unspecified; Z88.0 Allergy status to penicillin; Z74.01 Bed confinement status
CPT/HCPCS: 31500; 36415; 36573; 36600; 70551; 71045; 78278; 80048; 80053; 80076; 80202; 81003; 82140; 82270; 82375; 82550; 82570; 82607; 82728; 82746; 82805; 82962; 83540; 83550; 83605; 83615; 83735; 83880; 84100; 84134; 84145; 84156; 84300; 84484; 85014; 85018; 85025; 85044; 85362; 85379; 85384; 85651; 86850; 86900; 86920; 87070; 87076; 87077; 87106; 87186; 87426; 90732; 93005; 93880; 93970; 94002; 94003; 99291; A6261; A9560; C1725; C9113; C9803; J1100; J1650; J1940; J1953; J1956; J2060; J2370; J3370; J3475; J3480; J3490; J7030; J7050; J7060; J7070; P9016; A4315; A5200